=== PATIENT | male | born 1945 | race Caucasian/White ===

== ENCOUNTER 2020-04-03 05:25 | Day surgery (SDC) | payer MEDICARE, BC ==
[2020-04-03] MEDS ORDERED: Midazolam 1 MG/ML 2 ML SDV IV ONE ×6 (05:26→06:44)
[2020-04-03] MEDS ORDERED: fentaNYL 100 MCG/2 ML SDV IV ONE ×3 (05:26→06:34)
[2020-04-03] MEDS ORDERED: Sodium Chloride 0.9% 10 ML Syringe FLUSH PRN (06:00)
[2020-04-03] MEDS ORDERED: Dextrose 5%-0.45% NaCl 1,000 ML IV SCH (06:00)
[2020-04-03] MEDS ORDERED: Midazolam 1 MG/ML 2 ML SDV ONE (06:14)
[2020-04-03] MEDS ORDERED: fentaNYL 100 MCG/2 ML SDV ONE (06:15)
[2020-04-03 09:15] VITALS: BP 148/75; PULSE 64
--- NOTE | 2020-04-03 09:20 | OR ---
DATE: 04/03/2020 PROCEDURE: Total colonoscopy, terminal ileoscopy, NBI, multiple cold snare polypectomies and biopsies. INSTRUMENT USED: PCF-H190DL Olympus video colonoscope. PREMEDICATIONS: Fentanyl 100 mcg intravenous, Versed 3 mg intravenous. Nasal O2 cannula. The procedure was done under pulse oximetry, BP recording, and international exchange coordinator. INDICATION: Diabetic patient with recent persistent diarrhea, unexplained and not responsive to medical measures. Colonoscopic examination is done for detection of any polypoid lesions and removal, biopsies to be obtained for any evidence of microscopic colitis, endoscopic hemostasis therapy if needed. DESCRIPTION OF PROCEDURE: Initial rectal exam was unremarkable. Rigid anoscopy showed small internal hemorrhoids without bleeding from them. The colonoscope was passed with ease up to and beyond the ileocecal junction to visualize the normal-appearing terminal ileum. Photographs were taken of the terminal ileum. Multiple pinch biopsies were obtained and sent for histopathology. Photographs were taken of the normal-appearing cecum. No bleeding was noted from any of the visualized areas at the commencement of the examination. The bowel preparation was found to be adequate, Montrose scale 2 in all the regions, total score 6. No stricture. No vascular ectasia. No large isolated ulcerations seen. No evidence of diffuse inflammatory bowel disease in the form of friability, contact bleeding, or ulcerations. Probing the proximal sides of folds and flexures using adequate distention and clearing up the stool material, withdrawal of the scope was made. Photographs were taken of the proximal descending colon, showing 3 mm sized polyp and distal descending colon showing 5 mm sized polyp, NBI views were obtained, cold snare polypectomies were done, the tissues were retrieved and sent for histopathology. Multiple pinch biopsies were taken from the normal-appearing mucosa of the mid transverse colon, mid descending colon, and rectosigmoid, sent for any histopathologic evidence for microscopic colitis. No bleeding was noted from any of the visualized areas at the completion of examination. IMPRESSION: 1. Internal hemorrhoids. 2. Multiple colonic polyps. The patient tolerated the procedure well. [facility] /[id number]
--- NOTE | 2020-04-03 10:55 | LETTER ---
04/03/2020 Julito Nunez MD [facility] [address] [place] [address] RE: LEAH HARVEY : [address] Nunez: Mr. Leah Harvey had colonoscopic examination done this morning and he tolerated the procedure well. I herewith send a copy of the endoscopy note and photographs for your review. Thank you. Sincerely, [facility] /[id number]
== END 2020-04-03 09:18 | disposition home or self-care (01) ==
LOC: DL.ENDO 05:25
PROVIDERS: ATTEND Internal Medicine Gastroenterology
DX: D12.4 Benign neoplasm of descending colon (principal); K64.8 Other hemorrhoids; E66.09 Other obesity due to excess calories; E78.00 Pure hypercholesterolemia, unspecified; E11.9 Type 2 diabetes mellitus without complications; M54.5 Low back pain; I10 Essential (primary) hypertension; N40.0 Benign prostatic hyperplasia without lower urinary tract symptoms; M19.90 Unspecified osteoarthritis, unspecified site; Z98.890 Other specified postprocedural states; Z86.010 Personal history of colon polyps; Z86.69 Personal history of other diseases of the nervous system and sense organs; Z68.31 Body mass index [BMI] 31.0-31.9, adult
CPT/HCPCS: 45385; J2250; J3010; J7042; 88305